=== PATIENT | male | born 1930 | race Caucasian/White ===

== ENCOUNTER 2017-04-17 13:06 | Outpatient (CLI) | payer MEDICARE ==
[2017-04-17 13:15] LABS: #Eosinphils 0.2 thou/uL (0.0-0.7); #Lymphocytes 0.7 thou/uL (1.20-3.40); #Monocytes 0.6 thou/uL (0.11-0.59); %Basophils 0.7 % (0.0-1.0); %Eosinophils 2.9 % (0.0-10.0); %Lymphocytes 13.3 % (21.0-51.0); %Monocytes 10.3 % (0.0-10.0); %Neutrophils 72.7 % (42.0-75.0); Hemoglobin 14.8 g/dL (14.0-18.0); Mean Corpuscular HGB CONC 33.2 g/dL (32.0-36.0); Mean Corpuscular Hemoglobin 30.8 pg (27.0-31.0); Mean Corpuscular Volume 92.9 fl (80.0-94.0); Mean Platelet Volume 8.7 fL (7.4-10.4); Platelet Count 142 thou/uL (130-400); RBC Distribution Width 11.8 % (11.5-14.5); White Blood Cell (WBC) Count 5.5 thou/uL (4.8-10.8)
[2017-04-17 13:27] LABS: ALT (SGPT) 12 U/L (8-55); AST (SGOT) 30 U/L (5-34); Albumin 3.9 g/dL (3.4-4.8); Alkaline Phosphatase 78 U/L (40-150); Anion Gap 13 mmol/L (10-20); BUN (Urea Nitrogen) 18 mg/dL (8.4-25.7); Bilirubin, Total 0.4 mg/dL (0.2-1.2); Calc. Creatinine Clearance 0 mL/min (70-130); Calcium 8.9 mg/dL (7.8-10.44); Carbon Dioxide 24 mmol/L (23-31); Chloride 106 mmol/L (98-107); Estimated GFR-MDRD 61; Globulin 2.4 g/dL (2.4-3.5); Glucose 196 mg/dL (83-110); Potassium 3.8 mmol/L (3.5-5.1); Protein, Total 6.3 g/dL (5.8-8.1); Sodium 139 mmol/L (136-145)
== END 2017-04-17 13:07 | disposition home or self-care (01) ==
LOC: NAV LABSP 13:06
PROVIDERS: ATTEND Family Medicine
DX: E11.8 Type 2 diabetes mellitus with unspecified complications (principal); K21.9 Gastro-esophageal reflux disease without esophagitis; G20 Parkinson's disease; G30.9 Alzheimer's disease, unspecified
CPT/HCPCS: 36415; 80053; 85025

== ENCOUNTER 2017-05-17 20:00 | Outpatient (CLI) | payer MEDICARE ==
[2017-05-18 10:37] LABS: Bilirubin Negative (Negative); Blood, Urine Trace (Negative); Clarity Clear (Clear); Glucose, Urine (Dipstick) 500 mg/dL (Negative); Leukocyte Negative (Negative); Nitrite Negative (Negative); Protein, Urine (Dipstick) 30 mg/dL (Neg-Trace)
[2017-05-18 10:40] LABS: Bacteria/HPF Rare-Few HPF (None Seen); RBC/HPF 0-3 HPF (0-3); Squamous Epithelial 0-3 HPF (0-3); WBC/HPF 0-3 HPF (0-3)
== END 2017-05-17 20:01 ==
LOC: NAV LABSP 20:00
PROVIDERS: ATTEND Family Medicine
DX: E11.8 Type 2 diabetes mellitus with unspecified complications (principal); R41.82 Altered mental status, unspecified
CPT/HCPCS: 81003; 81015; 87086

== ENCOUNTER 2017-10-18 07:39 | Emergency (ER) | payer MEDICARE ==
[2017-10-18 08:11] LABS: #Eosinphils 0.1 thou/uL (0.0-0.7); #Lymphocytes 0.6 thou/uL (1.20-3.40); #Monocytes 0.5 thou/uL (0.11-0.59); %Basophils 0.8 % (0.0-1.0); %Lymphocytes 14.8 % (21.0-51.0); %Monocytes 12.4 % (0.0-10.0); Hemoglobin 13.9 g/dL (14.0-18.0); Mean Corpuscular HGB CONC 32.4 g/dL (32.0-36.0); Mean Corpuscular Hemoglobin 31.2 pg (27.0-31.0); Mean Corpuscular Volume 96.3 fl (80.0-94.0); Mean Platelet Volume 10.9 fL (7.4-10.4); PLT Morphology Comment Appears Decreased; Platelet Count 95 thou/uL (130-400); RBC Distribution Width 11.4 % (11.5-14.5); RBC Morphology Normal; Red Blood Cell (RBC) Count 4.45 mill/uL (4.70-6.10); White Blood Cell (WBC) Count 4.4 thou/uL (4.8-10.8)
[2017-10-18 08:12] LABS: MDiff Complete? YES; Manual Diff?? NO
[2017-10-18 08:17] LABS: INR-International Normal Ratio 1.1; Prothrombin Time 13.8 SEC (12.0-14.7)
[2017-10-18 08:27] LABS: ALT (SGPT) 12 U/L (8-55); AST (SGOT) 18 U/L (5-34); Albumin 3.5 g/dL (3.4-4.8); Alkaline Phosphatase 112 U/L (40-150); Anion Gap 13 mmol/L (10-20); BUN (Urea Nitrogen) 13 mg/dL (8.4-25.7); Bilirubin, Total 0.4 mg/dL (0.2-1.2); Calc. Creatinine Clearance 0 mL/min (70-130); Calcium 9.4 mg/dL (7.8-10.44); Carbon Dioxide 28 mmol/L (23-31); Chloride 102 mmol/L (98-107); Estimated GFR-MDRD 65; Globulin 2.7 g/dL (2.4-3.5); Glucose 123 mg/dL (83-110); Potassium 4.2 mmol/L (3.5-5.1); Protein, Total 6.2 g/dL (5.8-8.1); Sodium 139 mmol/L (136-145)
[2017-10-18] MEDS ORDERED: Iopamidol 370 76% 100 ML VIAL ONE (09:00)
[2017-10-18 09:21] LABS: Bilirubin Negative (Negative); Blood, Urine Trace (Negative); Clarity Clear (Clear); Glucose, Urine (Dipstick) Negative (Negative); Leukocyte Negative (Negative); Nitrite Negative (Negative); Protein, Urine (Dipstick) Trace mg/dL (Neg-Trace); Specific Gravity, Urine 1.015 (1.005-1.030); Urobilinogen 0.2 mg/dL (0.2-1.0); pH, Urine 7.5 (5.0-9.0)
[2017-10-18 09:35] LABS: RBC/HPF 0-3 HPF (0-3); Squamous Epithelial 0-3 HPF (0-3)
--- NOTE | 2017-10-18 10:05 | CT ---
CT HEAD NONCONTRAST: INDICATIONS: Head injury related to fall with pain. FINDINGS: There is moderate global atrophy with compensatory dilatation of the ventricular system. There is no evidence of intracranial hemorrhage, mass effect, or midline shift. The calvarium is intact. No pn eumocephalus. IMPRESSION: No acute intracranial hemorrhage or mass effect. POS: [facility]
--- NOTE | 2017-10-18 10:07 | CT ---
CERVICAL SPINE CT NONCONTRAST: INDICATIONS: Neck injury and pain related to fall. FINDINGS: There is no compression fracture. No subluxation. The craniocervical junction is intact. There is moderate multilevel degenerative change throughout the cervical spine. IMPRESSION: No evidence of an acute fracture. POS: [facility]
--- NOTE | 2017-10-18 10:12 | RAD ---
FRONTAL VIEW CHEST: INDICATIONS: Fall. Injury with pain. FINDINGS: There is elevation of the right hemidiaphragm. No free air is seen beneath the hemidiaphragms. The cardiomediastinal silhouette is accentuated by portable technique and patient rotation. There is sli ght eventration at the medial aspect of the left hemidiaphragm. There are mildly displaced posterola teral right rib fractures, notably at the 5th, 6th, and 7th right ribs, as depicted on the basis of t his exam, with portions of the lower right chest not visualized. There is a subtle hazy density, whi ch may relate to a mild underlying contusion. No discrete pneumothorax is evident. IMPRESSION: Post traumatic right rib deformities, acute in appearance, with underlying hazy density in the right chest. No obvious pneumothorax visualized. Recommend continued follow-up. POS: [facility]
--- NOTE | 2017-10-18 10:16 | RAD ---
PELVIC RADIOGRAPH SERIES THREE VIEWS: INDICATIONS: Fall with pelvic pain. Injury. FINDINGS: The hip joints are maintained bilaterally. No abnormal diastasis of the symphysis pubis or the sacro iliac joints. Phleboliths overly the pelvis. IMPRESSION: There is no acute fracture of the pelvis identified. POS: [facility]
--- NOTE | 2017-10-18 13:29 | CT ---
CT CHEST AND ABDOMEN AND PELVIS WITH CONTRAST: CT THORACIC AND LUMBAR SPINE: HISTORY: Fall with injury to chest. Rib fractures detected on chest film. TECHNIQUE: Multiple axial tomograms obtained through the chest, abdomen, and pelvis with IV enhancement, followi trauma protocol. Sagittal and coronal images obtained of the thoracic and lumbar spine. FINDINGS: CHEST: The lungs are well aerated. No evidence of pneumothorax identified. There is no evidence of focal contusion, effusion, or infiltrate. Review of the bone windows reveal multiple right-sided rib fractures. Some of these fracture show ev idence of a periosteal reaction, indicating subacute. The lateral fracture of the right fifth rib sh ows a periosteal reaction and evidence of early healing. There may be minimal reaction at the latera l right sixth rib fracture. There is a mildly displaced lateral right seventh rib fracture, which ma y be acute, as there is no significant periosteal reaction or healing. There is evidence of healing of a lateral right eighth rib fracture, and there is evidence of healing of a lateral right ninth rib fracture. ABDOMEN AND PELVIS: Numerous hepatic cystic lesions are seen. Most of these are tiny, subcentimeter lesions. There is a peripheral cystic lesion, measuring up to 2.5 cm. The spleen and pancreas appe ar unremarkable. There is a large, fixed diaphragmatic hernia, with a large portion of the stomach fixed above the yordan phragm. This may represent a paraesophageal type hernia. The small bowel loops are of normal caliber. The appendix is normal. The adrenal glands appear normal. There are numerous renal cystic lesions present. There is a 2 cm cyst, posterior right kidney. Ther e is a 5 cm cyst, lateral left kidney, and a 2.5 cm cyst, anterior left kidney. There is a 3 cm cyst , inferior left kidney. There are other smaller cystic lesions. No evidence of hydronephrosis. The ureters appear unremarkable. The urinary bladder is unremarkable ; however, there is prostatic hypertrophy, which does indent the floor of the bladder. The aorta is of normal caliber. The bony pelvis appears intact. CT THORACIC AND LUMBAR SPINE: There are compression deformities involving the L1, L2, and L3 vertebr ae. There is mild anterior wedging of L1 without retropulsion. Mild superior endplate compression o f L2 without retropulsion. Mild superior endplate compression and wedging of L3 without retropulsion . The age of these compression deformities is indeterminate. The thoracic vertebrae maintain height and alignment. Degenerative changes are noted. There is minimal superior endplate compression at t wo or three of the thoracic vertebrae, which are age indeterminate. IMPRESSION: 1. Numerous right-sided rib fractures seen. Some of these fractures show evidence of healing, indic ating subacute injuries, as discussed above. 2. Large, fixed diaphragmatic hernia. 3. Numerous hepatic cysts. 4. Numerous renal cysts. 5. Prostatic hypertrophy. 6. No evidence of acute intraabdominal injury. 7. Compression deformities involving the L1, L2, and L3 vertebrae, which are age indeterminate.0 POS: [facility]
== END 2017-10-18 12:55 ==
LOC: NAV ERS 07:39
DX: S22.41XA Multiple fractures of ribs, right side, initial encounter for closed fracture (principal); E11.9 Type 2 diabetes mellitus without complications; E03.9 Hypothyroidism, unspecified; F02.80 Dementia in other diseases classified elsewhere, unspecified severity, without behavioral disturbance, psychotic disturbance, mood disturbance, and anxiety; F32.9 Major depressive disorder, single episode, unspecified; G20 Parkinson's disease; G30.9 Alzheimer's disease, unspecified; K21.9 Gastro-esophageal reflux disease without esophagitis; G47.00 Insomnia, unspecified; Z79.4 Long term (current) use of insulin; Z79.899 Other long term (current) drug therapy; W19.XXXA Unspecified fall, initial encounter
CPT/HCPCS: 36415; 70450; 71045; 71260; 72125; 72170; 74177; 80053; 81003; 81015; 85025; 85610